=== PATIENT | male | born 1950 | race Caucasian/White ===

== ENCOUNTER 2019-05-19 05:30 | Day surgery (SDC) | payer MEDICARE, BC ==
[2019-05-18 12:22] LABS: HEMATOCRIT 48.7 % (42.0-54.0); HEMOGLOBIN 16.8 g/dL (13.5-17.5); MCH 31.5 pg (26.0-34.0); MCHC 34.5 g/dL (31.0-37.0); MCV 91.4 fL (80.0-100.0); MEAN PLATELET VOLUME 10.3 fL (7.4-10.4); RBC 5.33 10x6/uL (4.20-6.10); RDW 12.8 % (11.5-14.5); WBC 7.6 10x3/uL (4.8-10.8)
[~2019-05-19] VITALS: Ht 182.9 cm; Wt 95.7 kg
[~2019-05-19 05:30] MED LIST: ASPIRIN EC81 M1 PO; LIPITOR10 MG PO; LISINOPRIL20 MG PO
[2019-05-19 06:29] VITALS: BP 141/67; Ht 182.9 cm; Wt 95.7 kg
--- NOTE | 2019-05-19 08:31 | NUR ---
[address] BRAVO. PROCEDURE DISCUSSED WITH PT & . SERVED FULL LIQUID DIET. Tea TAYLOR R.N.
--- NOTE | 2019-05-19 09:25 | NUR ---
0910 GIVEN DISCHARGE INFORMATION INCLUDING: MED REC, RTC APPT., [facility] D/C INSTRUCTIONS, POST CYSTO & POST PROSTATE BIOPSY D/C INSTRUCTIONS. PT VOICED UNDERSTANDING. TO PRIVATE CAR PER WHEELCHAIR BY THIS NURSE. HOME WITH MRS. ADAMES. Tea TAYLOR R.N.
--- NOTE | 2019-05-19 09:40 | OP ---
PATIENT NAME: ATIF ADAMES MEDICAL RECORD: [id number] :54 LOCATION:D.OPS ADMISSION DATE: SURGEON: LANCE BRAVO MD DATE OF OPERATION: 05/19/2019 SURGEON: Lance Bravo MD ANESTHESIA: TIVA by Suresh Bull CRNA. DIAGNOSES: Elevated PSA of 4.62 (03/26/2019), positive family history of prostate cancer and bladder outlet obstruction. PROCEDURE: Cystoscopy, transrectal ultrasound (TRUS) and prostate biopsy. FINDINGS: On cystoscopy, obstructive bilateral lateral lobes. Single ureteral orifices in the bladder. Vascular bladder with no bladder tumors being seen. Transrectal ultrasound shows a 32 gram prostate with intraprostatic stones. SPECIMENS: Prostate biopsy cores. BLOOD LOSS: None. CLINICAL HISTORY: This is a 68-year-old male, who was found to have an elevated PSA of 4.62. Previously, the PSA level was normal. He has a positive family history with his father having prostate cancer at age 75. His father was treated with radioactive seeds. His sister of gastric cancer. He has some obstructive voiding symptoms including nocturia times 2. He also has a diminished stream. On rectal examination, there is no nodule palpated on the prostate. I felt that the prostate was about 30-40 grams in size. He is not allergic to any medications. He comes today for cystoscopy and prostate biopsy. 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 DESCRIPTION OF PROCEDURE: The patient was given IV sedation. He was placed in lithotomy position and prepped and draped. A 17-[place] cystoscope with 30-degree lens was used for visualization. The main site of obstruction is at the lateral lobes of the prostate. There is some elevation of the bladder neck also. However, he does not have a median lobe. The rest of the findings as outlined above. The bladder was emptied through the cystoscope sheath and then the scope was removed. We then introduced the transrectal ultrasound probe. Prostate size measurements were obtained. We estimated the prostate volume at 32 grams. Sextant biopsies were obtained with at least 3 cores from each sextant. Once all the specimens were obtained, then the procedure was terminated. I will see the patient in followup next week to review the pathology results with him. TRANSINT:[id number] Voice Confirmation ID: [id number] DOCUMENT ID: [id number] OPERATIVE REPORT [id number] ATIF ADAMES, LANCE Linton MD at 0940 CC: [id number] DICTATION DATE: 05/19/19827 SILK WEAVER: 05/19/19915 [facility] 05/19/19 [id number] [place] [address]
== END 2019-05-19 09:10 | disposition home or self-care (01) ==
LOC: D.OPS 05:30 → D.PAN 09:30
PROVIDERS: Anesthesiology; ATTEND Urology
DX: N32.0 Bladder-neck obstruction (principal); R97.20 Elevated prostate specific antigen [PSA]; Z80.42 Family history of malignant neoplasm of prostate